=== PATIENT | female | born 1960 | race African-American/Black ===

== ENCOUNTER → 2017-04-03 | Outpatient (CLI) | payer OTHER | END | disposition home or self-care (01) | LOC: KCIC US 14:14 | DX: N92.6 Irregular menstruation, unspecified (principal) | CPT/HCPCS: 76830; 76856 ==

== ENCOUNTER 2018-11-21 09:02 | Emergency (ER) | payer OTHER ==
[~2018-11-21] VITALS: Ht 172.7 cm; Wt 104.8 kg
[~2018-11-21 09:02] MED LIST: FERR325T14 PO; LEVO500T59 PO
[2018-11-21 09:25] VITALS: BP 166/88
[2018-11-21] MEDS ORDERED: METH4TAB2 PO (09:34)
[2018-11-21] MEDS ORDERED: BETA15OI6 TP (09:34)
[2018-11-21] MEDS ORDERED: HYDR25TA PO (09:34)
--- NOTE | 2018-11-21 09:35 | PHYS DOC ---
Past Medical History Past Medical History: No Pertinent History Past Surgical History: Tubal ligation Alcohol Use: None Drug Use: None Adult General Chief Complaint Chief Complaint: FACE PROBLEM HPI HPI Patient is a 58 year old female who presents with complaining of itching and rash of her face. Patient states she dyed her hair 3 days ago with permanent hair dye material for the first time and developed pruritic rash on forehead and scalp and ears with swelling of eyelids and small area of rash in left side of neck without shortness of breath, fever and chills, nausea and vomiting, history of the same problem. Patient states she took [id number] Benadryl without improvement of her condition. Review of Systems Review of Systems Constitutional: Denies fever or chills [] Eyes: Denies change in visual acuity, redness, or eye pain [] HENT: Denies nasal congestion or sore throat [] Respiratory: Denies cough or shortness of breath [] Cardiovascular: No additional information not addressed in HPI [] GI: Denies abdominal pain, nausea, vomiting, bloody stools or diarrhea [] : Denies dysuria or hematuria [] Musculoskeletal: Denies back pain or joint pain [] Integument: Reports rash Neurologic: Denies headache, focal weakness or sensory changes [] Endocrine: Denies polyuria or polydipsia [] All other systems were reviewed and found to be within normal limits, except as documented in this note. Allergies Allergies Allergies Coded Allergies Type Severity Reaction Last Updated Verified No Known Drug Allergies 10/29/16 No Physical Exam Physical Exam Constitutional: Well developed, well nourished, mild distress, non-toxic appearance. [] HENT: Normocephalic, atraumatic. Eyes: PERRLA, EOMI, conjunctiva normal, no discharge. [] Neck: Normal range of motion, no tenderness, supple, no stridor. [] Cardiovascular:Heart rate regular rhythm, no murmur [] Lungs & Thorax: Bilateral breath sounds clear to auscultation [] Abdomen: Bowel sounds normal, soft, no tenderness, no masses, no pulsatile masses. [] Skin: Warm, dry, maculopapular rash on hairline of forehead extending to ears and eyelids Or rash on the side of neck without sign of infection Back: No tenderness, no CVA tenderness. [] Extremities: No tenderness, no cyanosis, no clubbing, ROM intact, no edema. [] Neurologic: Alert and oriented X 3, no focal deficits noted. [] Psychologic: Affect normal, judgement normal, mood normal. [] Current Patient Data Vital Signs Vital Signs Date Time Temp Pulse Resp B/P (MAP) Pulse Ox O2 Delivery O2 Flow Rate FiO2 11/21/18 09:25 98.6 91 18 166/88 (114) 95 Room Air 98.6 EKG EKG [] Radiology/Procedures Radiology/Procedures [] Course & Med Decision Making Course & Med Decision Making I've spoken with the patient and/or caregivers. I've explained the patient's condition, diagnosis and treatment plan based on information available to me at this time. I've answered the patient's and/or caregivers questions and addressed any concerns. The patient and/or caregivers have a good understanding the patient's diagnosis, condition and treatment plan as can be expected at this point. Vital signs have been stabilized. The patient's condition is stable for discharge from the emergency department. The patient will pursue further outpatient evaluation with her primary care provider or other designated consulting physician as outlined in the discharge instructions. Patient and/or caregivers are agreeable to this plan of care and follow-up instructions have been explained in detail. The patient and/or caregivers have received these instructions in written format and expressed understanding of these discharge instructions. The patient and her caregivers are aware that if any significant change in condition or worsening of symptoms should prompt him to immediately return to this of the closest emergency department. If an emergent department is not readily available I would encourage him to call 911. Radhaon Disclaimer Dragon Disclaimer This electronic medical record was generated, in whole or in part, using a voice recognition dictation system. Departure Departure Impression: Primary Impression: Allergic reaction to dye Disposition: HOME, SELF-CARE (at [phone]) Condition: STABLE Referrals: REJI CALVO MD (PCP) Patient Instructions: Drug Rash Additional Instructions: Drink plenty of liquids Follow-up with your primary care physician in 3-5 days Return to ER if not getting better Scripts Methylprednisolone (MEDROL) 4 Mg Tab.ds.pk 1 PKG PO UD for inflammation, #1 PKG Prov: TRISHA HOLCOMB MD 11/21/18 Hydroxyzine Hcl (HYDROXYZINE HCL) 25 Mg Tablet 1 TAB PO TID PRN for itching, #30 TAB Prov: TRISHA HOLCOMB MD 11/21/18 Betamethasone/Propylene Glyc (BETAMETHASONE DP AUG 0.05% OIN) 15 Gm Oint...g. 1 GM TP BID, #60 MISC Prov: TRIHSA HOLCOMB MD 11/21/18 Problem Qualifiers Primary Impression: Allergic reaction to dye Encounter type: initial encounter Qualified Codes: T50.995A - Adverse effect of other drugs, medicaments and biological substances, initial encounter TRISHA HOLOCMB MD Nov 21, 2018 09:34
== END 2018-11-21 09:51 | disposition home or self-care (01) ==
LOC: ER 09:02
DX: L25.2 Unspecified contact dermatitis due to dyes (principal); T50.995A Adverse effect of other drugs, medicaments and biological substances, initial encounter; Y92.89 Other specified places as the place of occurrence of the external cause
CPT/HCPCS: 99283